=== PATIENT | male | born 1980 | race Caucasian/White ===

== ENCOUNTER → 2022-01-04 | Outpatient (CLI) | payer BC ==
[2015-10-12 15:40] VITALS: BP 120/72
--- NOTE | 2022-01-05 11:01 | KCIC ---
XR LUMBAR SPINE 2-3V History: Reason: Neck and back pain, denies radiculopathy. / Spl. Instructions: / History: Technique: 3 views lumbar spine. Comparison: None. Findings: Straightening of the lumbar spine. No acute fracture. And mild degenerative changes most prominent L2 -L3 and L4-5. Impression: 1. Mild lumbar spondylosis. Electronically signed by: Rell Heredia DO (01/05/2022 10:59 AM) [id number]
--- NOTE | 2022-01-05 11:02 | KCIC ---
XR CERVICAL SPINE 4-5V History: Reason: Neck and back pain, denies radiculopathy. / Spl. Instructions: / History: Technique: 5 views cervical spine. Comparison: None. Findings: Straightening of the cervical spine. No acute fracture. Degenerative disc changes most prominent C6-C 7 moderate. Prevertebral soft tissues are unremarkable. Facet arthropathy. Normal alignment C1 on C2. Impression: 1. Multilevel cervical spondylosis most prominent C6-C7. Electronically signed by: Rell Heredia DO (01/05/2022 11:00 AM) [id number]
== END ==
LOC: KCIC 15:20
PROVIDERS: ATTEND Family Medicine
DX: M47.812 Spondylosis without myelopathy or radiculopathy, cervical region (principal); M47.816 Spondylosis without myelopathy or radiculopathy, lumbar region; M48.8X2 Other specified spondylopathies, cervical region
CPT/HCPCS: 72050; 72100